=== PATIENT | female | born 1955 | race Caucasian/White ===

== ENCOUNTER 2024-08-04 06:41 | Day surgery (SDC) | payer OTHER, SELFPAY ==
[2024-08-02 16:03] VITALS: BMI 29.2
--- NOTE | 2024-08-03 07:00 | EKG_ITS ---
[facility] Test Date: 2024-08-03 Pat Name: CARRIE FIELDS Department: Room: - Gender: Female Emergency Communications Operator: RADHA : 1955 Requested By: Jolynn Andrade Order Number: [id number] Reading MD: Jolynn Andrade Measurements Intervals [place] Rate: 64 P: 84 CT: 172 QRS: -23 QRSD: 98 T: 47 QT: 419 QTc: 433 Interpretive Statements SINUS RHYTHM BORDERLINE LEFT AXIS DEVIATION MINIMAL ST DEPRESSION Compared to ECG 02/18/2023 21:06:24 No significant changes /store/S0/[id number]/[id number]
[2024-08-03 10:09] LABS: Basophils % (Auto) 1 % (0-2.5); Eosinophils # (Auto) 0.1 Thou/mm3 (0.0-0.5); Eosinophils % (Auto) 1 % (0-10); Hematocrit 41.3 % (36.0-46.0); Hemoglobin 14.5 g/dL (12.0-16.0); Immature Granulocytes % (Auto) 0 % (0-0); Immature Granulocytes Auto 0.02 Thou/mm3 (0.00-0.00); Lymphocytes # (Auto) 1.3 Thou/mm3 (1.0-4.8); Lymphocytes % (Auto) 21 % (10-50); Mean Corpuscular HGB Conc 35.1 g/dl (31.0-37.0); Mean Corpuscular Hemoglobin 32.5 pg (25.0-35.0); Mean Corpuscular Volume 93 fL (80-100); Monocytes # (Auto) 0.3 Thou/mm3 (0.0-0.8); Monocytes % (Auto) 5 % (0-12); Neutrophils # (Auto) 4.6 Thou/mm3 (1.8-7.7); Neutrophils % (Auto) 72 % (37-80); Nucleated Red Blood Cell % 0 /100 WBC (0); Platelet Count 257 Thou/mm3 (140-440); RDW Standard Deviation 42.7 fL (36.4-46.3); Red Blood Count 4.46 Miln/mm3 (4.00-5.20); White Blood Count 6.4 Thou/mm3 (3.6-11.0)
[2024-08-03 10:16] LABS: INR 1.1 (0.9-1.3); Partial Thromboplastin Time 26.1 Seconds (22.0-36.0); Prothrombin Time 11.6 Seconds (9.0-12.2)
[2024-08-03 10:19] LABS: Anion Gap 7 (7-16); BUN/Creatinine Ratio 12 Ratio (12-20); Blood Urea Nitrogen 13 mg/dL (9-23); Calcium 9.7 mg/dL (8.3-10.6); Carbon Dioxide 28.5 mMol/L (20.0-31.0); Chloride 103 mMol/L (98-107); Creatinine (Component) 1.1 mg/dL (0.6-1.3); Estimated Creatinine Clearance 51.4 mL/min (>60); Glucose 120 mg/dL (74-106); Osmolality,Calculated 276 (275-295); Potassium 4.4 mMol/L (3.4-5.1); Sodium 138 mMol/L (136-145); eGFR 54 See Note
[2024-08-04] VITALS (14 sets, daily range): BP systolic 117–178; BP diastolic 54–88; PULSE 51–80; RESP 13–21; TEMP 36.2–36.6; O2SAT 97–100; BMI 30.7
[2024-08-04] MEDS: DILTIAZEM 30 MG TABLET 120 MG PO (10:40)
[2024-08-04] MEDS: hydrALAZINE INJ 20 MG/ML VIAL 10 MG IV (10:43)
--- NOTE | 2024-08-04 23:58 | ESOP_ITS ---
RE: CARRIE FIELDS : 1955 DATE OF OPERATION: 08/04/2024 PROCEDURE PERFORMED: 1. Diagnostic left heart cardiac catheterization, selective coronary angiogram, left ventricular angiogram, CPT 16807 2. PCI, PTCA and stent placement of the mid left anterior descending artery using a drug-eluting stent, 3.0 x 24 mm Synergy stent post dilated using a 3.5 mm noncompliant balloon. Pre-procedure stenosis was 95%, post procedure stenosis was 0%, pre-procedure BRE flow 3, post procedure BRE flow 3. cpt 38954 3. Conscious sedation for one hour duration. 4. Ultrasound-guided access, right radial artery. DIAGNOSIS: Angina pectoris, abnormal stress test, coronary artery disease. HISTORY AND INDICATIONS: The patient is a 68-year-old female with a past medical history of hypertension, hypercholesterolemia, and anxiety, doing well until recently. She has had recurrent episodes of dizziness, chest pain, tightness, shortness of breath on minimal exertion, recurrent chest tightness, class III angina pectoris, cardiac stress test. Nuclear scan showed anteroapical ischemia and inferior wall ischemia. Hence, coronary angiogram was recommended to assess if the patient is a candidate for coronary intervention. DESCRIPTION OF PROCEDURE: The patient was brought to the cardiac catheterization laboratory where she was given 2 mg Versed for conscious sedation and 100 mcg of fentanyl for sedation and analgesia. The patient was given conscious sedation, right radial approach was taken. Right radial artery cannulated with micropuncture technique and a 6 [place] Glidesheath was introduced. Selective right and left coronary angiogram was then performed. Right coronary angiogram was performed by FR4 diagnostic catheter. Left coronary angiogram performed by TIG- 4 5-Emirati diagnostic catheter. Left heart catheterization and left ventriculogram performed by TIG-4 diagnostic catheter. Subsequently, intervention was undertaken. Diagnostic procedure showed the following findings: Hemodynamics: Left ventricular pressure 110/10 mmHg, aortic pressure 110/70 mmHg. No gradient across the aortic valve. Left ventricular angiogram showed normal left ventricular wall motion, ejection fraction 60%. Coronary angiogram showed following findings: Right coronary artery large and dominant, showed evidence of moderate 50% stenosis of the proximal RCA followed by two sequential lesions. Mid RCA showed 90% stenosis. Left coronary system: Left main coronary artery is normal and is short and bifurcation of the LAD _short left main. Left anterior descending artery showed evidence of 95% stenosis of the mid left anterior descending artery. Circumflex artery gives off one large obtuse marginal branch, appears normal. SUMMARY OF FINDINGS: Following the procedure, the patient was offered a choice of bypass surgery, double vessel versus stent placement. The patient preferred to have multivessel stent placement . PCI details are as follows: The patient received radial cocktail with 3000 units. An additional 3,000 units of heparin was given, ACT was 250, given additional 1,000 units heparin. Aspirin, the patient was already taking at home. Loading dose of aspirin and Brilinta 90 mg x2, 180 mg dose was given. Proceeded with a PCI. Next, a 6-Emirati FL3.5 guiding catheter was used to cannulate left main coronary artery. A 0.014 Runthrough guidewire was used to cross the lesion successfully. Predilation of the lesion performed by a 2.5 x 15 mm Emerge balloon. Subsequently, a 3.0 x 24 mm Synergy stent was deployed successfully. Post stent deployment, angioplasty was performed by 3.5 mm noncompliant balloon. Except for the distal 2 mm, the rest of the stent was dilated to 14 atmospheric pressure. Final angiogram showed widely patent left anterior descending artery with 0% residual stenosis. SUMMARY OF FINDINGS AND SUGGESTIONS: Severe double-vessel coronary artery disease, underwent successful PCI and stent placement in the mid left anterior descending artery, placement of drug-eluting stent 3.0 x 24 mm Synergy, pre-stenosis 95%, post stenosis 0%, pre- BRE flow 3, post BRE flow 3. The patient also has severe 95% stenosis of the right coronary artery. She will be recommended to have PCI stent to the right coronary artery in the next 2-3 weeks if she continues to have angina pectoris or a staged angioplasty and intervention. DT: 22:04:28 TT: 23:16:00 Ref: [id number] - TID: [id number] [facility]
== END 2024-08-04 14:10 | disposition home or self-care (01) ==
PROVIDERS: PCP Internal Medicine; Referring Provider Internal Medicine Cardiovascular Disease; Visit Provider Internal Medicine Cardiovascular Disease
PROC: (CPT 93458; principal; 2024-08-04 08:30)
DX: I25.118 Atherosclerotic heart disease of native coronary artery with other forms of angina pectoris (principal); E78.00 Pure hypercholesterolemia, unspecified; I10 Essential (primary) hypertension; Z01.810 Encounter for preprocedural cardiovascular examination
CPT/HCPCS: 93458; C9600; 36415; 80048; 85025; 85347; 85610; 85730; 93005; 99152; 99153; A4649; C1725; C1769; C1874; C1887; C1894; J0171; J0360; J0461; J1643; J2250; J2310; J2371; J3010; J3490; Q9967; A9270; J1644; J2305

== ENCOUNTER 2024-08-30 06:43 | Day surgery (SDC) | payer OTHER, SELFPAY ==
--- NOTE | 2024-08-29 00:01 | EKG_ITS ---
[facility] Test Date: 2024-08-29 Pat Name: CARRIE FIELDS Department: Room: - Gender: Female Cigarette Machine Operator: DICK : 1955 Requested By: Jolynn Andrade Order Number: [id number] Reading MD: Jolynn Andrade Measurements Intervals [place] Rate: 66 P: 155 CA: 170 QRS: -41 QRSD: 93 T: 95 QT: 421 QTc: 442 Interpretive Statements ECTOPIC ATRIAL RHYTHM MARKED LEFT AXIS DEVIATION ABNORMAL QRS-T ANGLE Compared to ECG 08/03/2024 09:50:42 Ectopic atrial rhythm now present Sinus rhythm no longer present ST (T wave) deviation no longer present /store/S0/[id number]/[id number].pdf
[2024-08-29 11:10] LABS: Basophils % (Auto) 1 % (0-2.5); Eosinophils % (Auto) 1 % (0-10); Hematocrit 40.1 % (36.0-46.0); Hemoglobin 13.7 g/dL (12.0-16.0); Immature Granulocytes % (Auto) 0 % (0-0); Immature Granulocytes Auto 0.01 Thou/mm3 (0.00-0.00); Lymphocytes # (Auto) 1.5 Thou/mm3 (1.0-4.8); Lymphocytes % (Auto) 24 % (10-50); Mean Corpuscular HGB Conc 34.2 g/dl (31.0-37.0); Mean Corpuscular Hemoglobin 31.9 pg (25.0-35.0); Mean Corpuscular Volume 94 fL (80-100); Monocytes # (Auto) 0.4 Thou/mm3 (0.0-0.8); Monocytes % (Auto) 7 % (0-12); Neutrophils # (Auto) 4.2 Thou/mm3 (1.8-7.7); Neutrophils % (Auto) 68 % (37-80); Nucleated Red Blood Cell % 0 /100 WBC (0); Platelet Count 256 Thou/mm3 (140-440); RDW Standard Deviation 44.1 fL (36.4-46.3); Red Blood Count 4.29 Miln/mm3 (4.00-5.20); White Blood Count 6.2 Thou/mm3 (3.6-11.0)
[2024-08-29 11:18] LABS: Anion Gap 7 (7-16); BUN/Creatinine Ratio 13 Ratio (12-20); Blood Urea Nitrogen 14 mg/dL (9-23); Calcium 9.9 mg/dL (8.3-10.6); Carbon Dioxide 27.8 mMol/L (20.0-31.0); Chloride 104 mMol/L (98-107); Creatinine (Component) 1.1 mg/dL (0.6-1.3); Glucose 104 mg/dL (74-106); Osmolality,Calculated 278 (275-295); Potassium 4.6 mMol/L (3.4-5.1); Sodium 139 mMol/L (136-145); eGFR 54 See Note
[2024-08-29 11:45] LABS: Partial Thromboplastin Time 25.9 Seconds (22.0-36.0); Prothrombin Time 11.4 Seconds (9.0-12.2)
[2024-08-30] VITALS (13 sets, daily range): BP systolic 104–174; BP diastolic 69–94; PULSE 65–85; RESP 13–22; TEMP 36.5–36.7; O2SAT 97–100; BMI 29.7
[2024-08-30] MEDS: LORazepam 2 MG/ML VIAL 1 MG IVP (07:16)
--- NOTE | 2024-08-30 09:19 | PC.ADMIT ---
0850 patient is awake, alert, breathing unlabored, s/p C with PCI, TR band present to right wrist, no bleeding or hematoma noted, report received from Jose Enrique SILVA. Per Dr. Mullins, hanh to start removing air from TR band at 0945. Patient has brilinta and aspirin at home, pt to resume home medications, no new medications ordered at this time.
--- NOTE | 2024-08-30 10:09 | ESOP_ITS ---
RE: CARRIE FIELDS : 1955 DATE OF OPERATION: 08/30/2024 PROCEDURE PERFORMED: 1. Diagnostic left heart cardiac catheterization, selective coronary angiogram, left ventricular angiogram, CPT 11496. 2. PCI, PTCA stent placement of mid right coronary artery, placement of drug-eluting stent, 3.0 x 15 mm drug eluting stent, Xience. Preprocedure stenosis 99% and postprocedure stenosis 0%. Preprocedure BRE flow is 2, postprocedure BRE flow is 3, CPT 36273. 3. PCI, PTCA stent placement of proximal right coronary artery, placement of drug-eluting stent, 3.0 x 28 mm Xience Medina drug eluting stent. Preprocedure stenosis 90%, postprocedure stenosis 0%. BRE flow preprocedure is 2, postprocedure is 3. 4. Conscious sedation. 5. Ultrasound guided access of right radial artery. DIAGNOSIS: Coronary artery disease, angina pectoris, multivessel CAD, status post stent to the LAD. HISTORY AND INDICATIONS: Mrs. Fields is a 68-year-old female with a past medical history of hypertension, hypercholesterolemia, coronary artery disease, status post stent placement of LAD, has had 90% stenosis of right coronary artery, continued to have angina pectoris class 3 on maximum medical management. Coronary angiogram was recommended to assess patency of left anterior descending artery and proceed with stent placement of the right coronary artery. DESCRIPTION OF PROCEDURE: The patient was brought to cardiac catheterization laboratory where she was given conscious sedation with 2 mg Versed and 50 mcg fentanyl for sedation. . Right radial approach was taken. The right radial artery was cannulated by micropuncture technique. A 6-Czech Glidesheath introduced. Diagnostic left heart catheterization and coronary angiogram performed by FL4 diagnostic catheter and FR4 diagnostic catheter and left ventricular angina performed. Subsequently, intervention was undertaken. Diagnostic procedure showed the following findings: Right coronary artery showed 90% stenosis proximal RCA and 99% stenosis mid RCA. Left coronary artery system: left main coronary artery had a separate origin of LAD and circumflex arteries. Left anterior descending artery is widely patent. Stents are widely patent. Circumflex artery is also patent. Left ventricular angiogram showed normal ejection fraction of 70%. Left ventricular pressure 110/10, EDV was 7, and aortic pressure 110/70. No gradient across the aortic wall. Following diagnostic procedure, complex multivessel PCI stent was recommended because of complex lesion. This was very complex PCI. The patient was given radial cocktail plus 3000 heparin and an additional 1000 for anticoagulation, ACT therapeutic. The patient already had aspirin and Brilinta on board. Right coronary artery was engaged with FR4 guiding catheter. A 0.014 run-through guidewire could not cross the lesion. A 0.014 navy fighter pilot guide was used to cross the lesion using a support of the tile sorter 1.25 mm balloon over the wire balloon technique and it was dilated using this balloon. Subsequently, exchange was performed and the tile sorter was removed and a 2.5 mm balloon was used to pre-dilate both lesions. Stent placement in mid RCA was then performed using a 3.0 x 15 mm Xience [place] stent, successfully deployed with 14 atmosphere pressure. Subsequently, proximal RCA stent was then performed using a 3.0 x 28 mm Synergy stent was deployed successfully. Subsequently, post stent deployment angioplasty was performed with a 3.5 mm NC balloon with 69 atmospheric pressure with excellent angiographic results. Final angiogram showed widely patent RCA with BRE-3 flow. TR band was obtained. Hemostasis was secured. SUMMARY OF FINDINGS AND SUGGESTIONS: 1. Multivessel coronary disease with patent stent in the left anterior descending artery. 2. Stent placement, mid RCA using Xience [place] stent 3.0 x 15, pre-procedure stenosis 99%, postprocedure 0%. 3. Successful stent placement, proximal RCA using Medina 3.0 x 28 mm drug-eluting stent successfully with excellent results. No complications during the procedure. DT: 08:54:18 TT: 10:03:00 Ref: [id number] - TID: [id number]
--- NOTE | 2024-08-30 12:36 | PC.NURSE ---
1100 TR band removed, no bleeding or hematoma noted 1220 patient is awake, alert, breathing unlabored, dressing to right wrist dry with no bleeding or hematoma, patient able to void 1000ml clear yellow output via purewick device, able to tolerate pudding , applesauce and water with no nausea or vomiting, meets discharge criteria, patient discharged home in wheelchair with all belongings.
== END 2024-08-30 12:20 | disposition home or self-care (01) ==
PROVIDERS: PCP Internal Medicine; Referring Provider Internal Medicine Cardiovascular Disease; Visit Provider Internal Medicine Cardiovascular Disease
PROC: (CPT 93458; principal; 2024-08-30 07:30)
DX: I25.118 Atherosclerotic heart disease of native coronary artery with other forms of angina pectoris (principal); Z95.5 Presence of coronary angioplasty implant and graft; I10 Essential (primary) hypertension; E78.00 Pure hypercholesterolemia, unspecified; Z01.810 Encounter for preprocedural cardiovascular examination
CPT/HCPCS: 93458; C9600; 36415; 80048; 85025; 85347; 85610; 85730; 93005; 99152; 99153; A4649; C1725; C1769; C1874; C1887; C1894; J0171; J0461; J1643; J2060; J2250; J2310; J2371; J3010; J3490; Q9967; J1644; J2305

== ENCOUNTER → 2024-11-01 | Outpatient (CLI) | payer OTHER, SELFPAY ==
--- NOTE | 2024-11-01 09:58 | XR_ITS ---
Examination: PA lateral chest 2 views TECHNIQUE: Upright PA lateral chest 2 views Exam date and time: 2024 1110 hours INDICATIONS: Coughing beginning 7 weeks ago. FINDINGS: Normal heart size No pneumonia or pulmonary edema Moderate hyperexpansion IMPRESSION: No pneumonia identified
[2024-11-01 12:20] LABS: Collection Type, Urine Clean Catch
[2024-11-01 12:40] LABS: Basophils % (Auto) 1 % (0-2.5); Eosinophils # (Auto) 0.1 Thou/mm3 (0.0-0.5); Eosinophils % (Auto) 1 % (0-10); Hematocrit 39.5 % (36.0-46.0); Hemoglobin 13.4 g/dL (12.0-16.0); Immature Granulocytes % (Auto) 0 % (0-0); Immature Granulocytes Auto 0.01 Thou/mm3 (0.00-0.00); Lymphocytes # (Auto) 1.5 Thou/mm3 (1.0-4.8); Lymphocytes % (Auto) 26 % (10-50); Mean Corpuscular HGB Conc 33.9 g/dl (31.0-37.0); Mean Corpuscular Volume 94 fL (80-100); Monocytes # (Auto) 0.4 Thou/mm3 (0.0-0.8); Monocytes % (Auto) 7 % (0-12); Neutrophils # (Auto) 3.8 Thou/mm3 (1.8-7.7); Neutrophils % (Auto) 66 % (37-80); Nucleated Red Blood Cell % 0 /100 WBC (0); Platelet Count 269 Thou/mm3 (140-440); RDW Standard Deviation 44.4 fL (36.4-46.3); Red Blood Count 4.19 Miln/mm3 (4.00-5.20); White Blood Count 5.7 Thou/mm3 (3.6-11.0)
[2024-11-01 12:48] LABS: Bilirubin,Urine Negative (Negative); Blood,Urine Negative (Negative); Clarity,Urine Clear (Clear/Hazy); Color,Urine Lt-Yellow (Lt Yel-Yel); Glucose, Urine Negative (Negative); Ketones,Urine Negative (Negative); Leukocyte Esterase,Urine Positive (Negative); Nitrite,Urine Negative (Negative); Protein,Urine Negative (Neg - Trace); RBC,Urine 3 /hpf (0-3); Specific Gravity,Urine 1.021 (1.001-1.035); Squamous Epithelial Cell,Urine 5 /hpf (0-5); Urobilinogen,Urine Negative mg/dL (0.0-1.0); WBC,Urine 2 /hpf (0-5)
[2024-11-01 12:53] LABS: Alanine Aminotransferase 17 U/L (10-49); Albumin, Serum 4.4 gm/dL (3.4-4.8); Albumin/Globulin Ratio 1.8 (1.2-2.2); Alkaline Phosphatase 101 U/L (46-116); Anion Gap 7 (7-16); Aspartate Amino Transferase 10 U/L (0-34); BUN/Creatinine Ratio 14 Ratio (12-20); Blood Urea Nitrogen 13 mg/dL (9-23); Calcium 9.4 mg/dL (8.3-10.6); Calcium (Corrected) 9.4 mg/dL (8.5-10.1); Carbon Dioxide 29.1 mMol/L (20.0-31.0); Cardiac Risk Estimate 4.3 RATIO (3.7-5.6); Chloride 108 mMol/L (98-107); Cholesterol 195 mg/dL (132-200); Creatinine (Component) 0.9 mg/dL (0.6-1.3); Globulin 2.4 gm/dL (2.3-3.5); Glucose 92 mg/dL (74-106); HDL Cholesterol 45 mg/dL (40-60); LDL Cholesterol,Calculated 111 mg/dL (0-130); Osmolality,Calculated 286 (275-295); Potassium 4.6 mMol/L (3.4-5.1); Sodium 144 mMol/L (136-145); Total Protein 6.8 gm/dL (5.7-8.2); Triglycerides 194 mg/dL (30-150); eGFR > 60 See Note
== END | disposition home or self-care (01) ==
LOC: COPL 09:49
PROVIDERS: PCP Internal Medicine; Referring Provider Internal Medicine; Visit Provider Internal Medicine
DX: R05.1 Acute cough (principal); I10 Essential (primary) hypertension; E78.5 Hyperlipidemia, unspecified
CPT/HCPCS: 36415; 71046; 80053; 80061; 81001; 85025

== ENCOUNTER → 2025-02-27 | Outpatient (CLI) | payer OTHER, SELFPAY ==
[2025-02-27 12:41] LABS: Alanine Aminotransferase 11 U/L (10-49); Albumin, Serum 4.4 gm/dL (3.4-4.8); Alkaline Phosphatase 84 U/L (46-116); Aspartate Amino Transferase 15 U/L (0-34); Bilirubin,Direct 0.8 mg/dL (0.0-0.3); Bilirubin,Total 3.2 mg/dL (0.3-1.2); Cardiac Risk Estimate 3.5 RATIO (3.7-5.6); Cholesterol 141 mg/dL (132-200); HDL Cholesterol 40 mg/dL (40-60); LDL Cholesterol,Calculated 76 mg/dL (0-130); Total Protein 6.7 gm/dL (5.7-8.2); Triglycerides 125 mg/dL (30-150)
== END | disposition home or self-care (01) ==
LOC: COPL 11:09
PROVIDERS: PCP Internal Medicine; Referring Provider Internal Medicine Cardiovascular Disease; Visit Provider Internal Medicine Cardiovascular Disease
DX: E78.00 Pure hypercholesterolemia, unspecified (principal); I20.89 Other forms of angina pectoris
CPT/HCPCS: 36415; 80061; 80076

== ENCOUNTER → 2025-05-29 | Outpatient (CLI) | payer OTHER, SELFPAY ==
[2025-05-29 10:12] LABS: Collection Type, Urine Clean Catch
[2025-05-29 10:16] LABS: Basophils # (Auto) 0.0 Thou/mm3 (0.0-0.2); Basophils % (Auto) 1 % (0-2.5); Eosinophils # (Auto) 0.0 Thou/mm3 (0.0-0.5); Eosinophils % (Auto) 1 % (0-10); Hematocrit 37.7 % (36.0-46.0); Hemoglobin 12.7 g/dL (12.0-16.0); Immature Granulocytes Auto 0.02 Thou/mm3 (0.00-0.00); Lymphocytes # (Auto) 1.5 Thou/mm3 (1.0-4.8); Lymphocytes % (Auto) 30 % (10-50); Mean Corpuscular HGB Conc 33.7 g/dl (31.0-37.0); Mean Corpuscular Hemoglobin 32.3 pg (25.0-35.0); Mean Corpuscular Volume 96 fL (80-100); Monocytes # (Auto) 0.3 Thou/mm3 (0.0-0.8); Monocytes % (Auto) 7 % (0-12); Neutrophils # (Auto) 3.0 Thou/mm3 (1.8-7.7); Neutrophils % (Auto) 61 % (37-80); Nucleated Red Blood Cell # 0.00 Thou/mm3 (0.00-0.00); Nucleated Red Blood Cell % 0 /100 WBC (0); Platelet Count 200 Thou/mm3 (140-440); RDW Standard Deviation 46.8 fL (36.4-46.3); Red Blood Count 3.93 Miln/mm3 (4.00-5.20); White Blood Count 4.9 Thou/mm3 (3.6-11.0)
[2025-05-29 10:44] LABS: Alanine Aminotransferase 14 U/L (10-49); Albumin, Serum 4.4 gm/dL (3.4-4.8); Albumin/Globulin Ratio 2.1 (1.2-2.2); Alkaline Phosphatase 84 U/L (46-116); Anion Gap 7 (7-16); Aspartate Amino Transferase 16 U/L (0-34); BUN/Creatinine Ratio 13 Ratio (12-20); Bilirubin,Total 4.3 mg/dL (0.3-1.2); Blood Urea Nitrogen 13 mg/dL (9-23); Calcium 9.7 mg/dL (8.3-10.6); Calcium (Corrected) 9.7 mg/dL (8.5-10.1); Carbon Dioxide 27.6 mMol/L (20.0-31.0); Cardiac Risk Estimate 3.9 RATIO (3.7-5.6); Chloride 109 mMol/L (98-107); Cholesterol 162 mg/dL (132-200); Creatinine (Component) 1.0 mg/dL (0.6-1.3); Globulin 2.1 gm/dL (2.3-3.5); Glucose 103 mg/dL (74-106); HDL Cholesterol 42 mg/dL (40-60); LDL Cholesterol,Calculated 94 mg/dL (0-130); Osmolality,Calculated 286 (275-295); Potassium 4.7 mMol/L (3.4-5.1); Sodium 144 mMol/L (136-145); Thyroid Stimulating Hormone 1.99 uIU/mL (0.55-4.78); Total Protein 6.5 gm/dL (5.7-8.2); Triglycerides 131 mg/dL (30-150); Uric Acid 8.1 mg/dL (3.1-7.8); Vitamin B12 337 pg/mL (211-911); Vitamin D 25 Hydroxy Total 30.5 ng/mL (7.3-40.2); eGFR > 60 See Note
[2025-05-29 11:33] LABS: Bilirubin,Urine Negative (Negative); Blood,Urine Negative (Negative); Clarity,Urine Clear (Clear/Hazy); Color,Urine Yellow (Lt Yel-Yel); Glucose, Urine Negative (Negative); Ketones,Urine Negative (Negative); Leukocyte Esterase,Urine Positive (Negative); Nitrite,Urine Negative (Negative); PH,Urine 6.0 (5.0-7.0); Protein,Urine Negative (Neg - Trace); RBC,Urine 3 /hpf (0-3); Specific Gravity,Urine 1.018 (1.001-1.035); Squamous Epithelial Cell,Urine 2 /hpf (0-5); Urobilinogen,Urine Negative mg/dL (0.0-1.0); WBC,Urine 4 /hpf (0-5)
== END | disposition home or self-care (01) ==
LOC: COPL 09:37
PROVIDERS: PCP Internal Medicine; Referring Provider Internal Medicine; Visit Provider Internal Medicine
DX: I10 Essential (primary) hypertension (principal); E78.5 Hyperlipidemia, unspecified; D51.9 Vitamin B12 deficiency anemia, unspecified; E55.9 Vitamin D deficiency, unspecified; E03.9 Hypothyroidism, unspecified
CPT/HCPCS: 36415; 80053; 80061; 81001; 82306; 82607; 84443; 84550; 85025

== ENCOUNTER → 2025-07-13 | Outpatient (CLI) | payer OTHER, SELFPAY ==
[2025-07-13 09:55] LABS: Alanine Aminotransferase 12 U/L (10-49); Albumin, Serum 4.8 gm/dL (3.4-4.8); Alkaline Phosphatase 74 U/L (46-116); Aspartate Amino Transferase 16 U/L (0-34); Bilirubin,Direct 0.6 mg/dL (0.0-0.3); Bilirubin,Total 2.5 mg/dL (0.3-1.2); Cardiac Risk Estimate 6.4 RATIO (3.7-5.6); Cholesterol 276 mg/dL (132-200); HDL Cholesterol 43 mg/dL (40-60); LDL Cholesterol,Calculated 199 mg/dL (0-130); Total Protein 6.8 gm/dL (5.7-8.2); Triglycerides 171 mg/dL (30-150)
== END | disposition home or self-care (01) ==
LOC: COPL 08:42
PROVIDERS: PCP Internal Medicine; Referring Provider Internal Medicine; Visit Provider Internal Medicine Cardiovascular Disease
DX: E78.00 Pure hypercholesterolemia, unspecified (principal); I25.10 Atherosclerotic heart disease of native coronary artery without angina pectoris
CPT/HCPCS: 36415; 80061; 80076

== ENCOUNTER → 2025-08-10 | Outpatient (CLI) | payer OTHER, SELFPAY ==
[2025-08-10 09:25] LABS: Basophils # (Auto) 0.0 Thou/mm3 (0.0-0.2); Basophils % (Auto) 1 % (0-2.5); Eosinophils # (Auto) 0.0 Thou/mm3 (0.0-0.5); Eosinophils % (Auto) 0 % (0-10); Hematocrit 39.1 % (36.0-46.0); Hemoglobin 13.4 g/dL (12.0-16.0); Immature Granulocytes Auto 0.01 Thou/mm3 (0.00-0.00); Lymphocytes # (Auto) 1.3 Thou/mm3 (1.0-4.8); Lymphocytes % (Auto) 24 % (10-50); Mean Corpuscular HGB Conc 34.3 g/dl (31.0-37.0); Mean Corpuscular Hemoglobin 32.1 pg (25.0-35.0); Mean Corpuscular Volume 94 fL (80-100); Monocytes # (Auto) 0.3 Thou/mm3 (0.0-0.8); Monocytes % (Auto) 6 % (0-12); Neutrophils # (Auto) 3.6 Thou/mm3 (1.8-7.7); Neutrophils % (Auto) 68 % (37-80); Nucleated Red Blood Cell # 0.00 Thou/mm3 (0.00-0.00); Nucleated Red Blood Cell % 0 /100 WBC (0); Platelet Count 235 Thou/mm3 (140-440); RDW Standard Deviation 42.8 fL (36.4-46.3); Red Blood Count 4.17 Miln/mm3 (4.00-5.20); White Blood Count 5.3 Thou/mm3 (3.6-11.0)
[2025-08-10 09:40] LABS: Collection Type, Urine Clean Catch
[2025-08-10 09:59] LABS: Alanine Aminotransferase 13 U/L (10-49); Albumin, Serum 4.5 gm/dL (3.4-4.8); Albumin/Globulin Ratio 2.0 (1.2-2.2); Alkaline Phosphatase 71 U/L (46-116); Anion Gap 8 (7-16); Aspartate Amino Transferase 15 U/L (0-34); BUN/Creatinine Ratio 10 Ratio (12-20); Bilirubin,Total 2.7 mg/dL (0.3-1.2); Blood Urea Nitrogen 10 mg/dL (9-23); Calcium 9.1 mg/dL (8.3-10.6); Calcium (Corrected) 9.1 mg/dL (8.5-10.1); Carbon Dioxide 28.9 mMol/L (20.0-31.0); Cardiac Risk Estimate 5.0 RATIO (3.7-5.6); Chloride 107 mMol/L (98-107); Cholesterol 232 mg/dL (132-200); Creatinine (Component) 1.0 mg/dL (0.6-1.3); Globulin 2.3 gm/dL (2.3-3.5); Glucose 109 mg/dL (74-106); HDL Cholesterol 46 mg/dL (40-60); LDL Cholesterol,Calculated 159 mg/dL (0-130); Osmolality,Calculated 286 (275-295); Potassium 4.4 mMol/L (3.4-5.1); Sodium 144 mMol/L (136-145); Thyroid Stimulating Hormone 2.43 uIU/mL (0.55-4.78); Total Protein 6.8 gm/dL (5.7-8.2); Triglycerides 135 mg/dL (30-150); eGFR > 60 See Note
[2025-08-10 10:15] LABS: Bilirubin,Urine Negative (Negative); Blood,Urine Negative (Negative); Clarity,Urine Clear (Clear/Hazy); Color,Urine Lt-Yellow (Lt Yel-Yel); Glucose, Urine Negative (Negative); Ketones,Urine Negative (Negative); Leukocyte Esterase,Urine Positive (Negative); Nitrite,Urine Negative (Negative); PH,Urine 6.5 (5.0-7.0); Protein,Urine Negative (Neg - Trace); RBC,Urine 1 /hpf (0-3); Specific Gravity,Urine 1.015 (1.001-1.035); Squamous Epithelial Cell,Urine 2 /hpf (0-5); Urobilinogen,Urine Negative mg/dL (0.0-1.0); WBC,Urine 3 /hpf (0-5)
== END | disposition home or self-care (01) ==
LOC: COPL 08:37
PROVIDERS: PCP Internal Medicine; Referring Provider Internal Medicine; Visit Provider Internal Medicine
DX: I10 Essential (primary) hypertension (principal); E78.5 Hyperlipidemia, unspecified
CPT/HCPCS: 36415; 80053; 80061; 81001; 84443; 85025